=== PATIENT | male | born 1960 | race Caucasian/White ===

== ENCOUNTER 2017-10-03 20:24 | Inpatient (IN) | payer BC ==
[~2017-10-03] VITALS: Ht 200.7 cm; Wt 163.9 kg
[~2017-10-03 20:24] MED LIST: ANCEF,KEFZ2 GM/100 M IV; Glucophage PO; HUMULIN 70100 UNIT/2 SC; INDOCIN SR75 MG PO; K-Dur PO; LANTUS 3 M100 UNITS/ SC; LEVEMIR100 UNIT/2 SC; LISINOPRIL10 MG PO; LOVENOX40 MG/0.4 SC; Lopressor PO; Motrin PO; NAFCIL2 GM IV; NOVOLOG PE100 UNITS/ SC; PERCOCET 5/31 TABLET PO; PROTONIX40 MG PO; Percocet 5/325,Endoc PO; Protonix PO; ZESTRIL10 MG PO; Zestril,Prinivil PO
[2017-10-03 21:58] LABS: HEMATOCRIT 38.3 % (38.0-50.0); HEMOGLOBIN 13.3 G/DL (12.5-16.6); MCH 29.1 PG (29.0-34.0); MCHC 34.7 G/DL (30.0-36.0); MCV 83.8 FL (86-99); PLATELET COUNT 225 K/uL (156-360); RBC DIS.WIDTH-CV 12.3 % (11.8-14.6); RBC DIS.WIDTH-SD 37.6 % (39-53); RED BLOOD COUNT 4.57 M/uL (4.00-5.50); WHITE BLOOD COUNT 10.6 K/uL (4.1-10.2)
[2017-10-03 22:06] LABS: ALBUMIN 3.4 g/dL (3.2-4.8); CHLORIDE 100 mEq/L (99-109); POTASSIUM 4.3 mEq/L (3.7-5.4); SODIUM 132 mEq/L (136-147)
[2017-10-03 22:09] LABS: TOTAL PROTEIN 7.6 g/dL (6.4-8.3)
[2017-10-03 22:11] LABS: TOTAL BILIRUBIN 0.3 mg/dL (0.0-1.0)
[2017-10-03 22:12] LABS: ALKALINE PHOSPHATASE 84 IU/L (3-129); CREATININE 1.2 mg/dL (0.6-1.3); GFR ESTIMATE (CALCULATED) > 59 mL/min/ (58.99-99999)
[2017-10-03 22:14] LABS: AST (GOT) 12 IU/L (2-34); UREA NITROGEN (BUN) 25 mg/dL (9-23)
[2017-10-03 22:15] LABS: ALT (GPT) 13 IU/L (3-49); GLUCOSE 410 mg/dL (70-99)
[2017-10-03 23:07] LABS: C-REACTIVE PROTEIN 120.5 MG/L (0-10)
[2017-10-03] MEDS ORDERED: HUMALOG100 UNIT/2 SC (23:28)
[2017-10-03] MEDS ORDERED: LISINOPRIL-HCT1 EAC3 PO (23:29)
[2017-10-03] MEDS ORDERED: ATORVASTATIN CA40 MG PO (23:29)
[2017-10-03] MEDS ORDERED: AMLODIPINE BESY10 MG PO (23:29)
[2017-10-03] MEDS ORDERED: LEVEMIR FL100 UNIT/1 SC (23:30)
[2017-10-03] MEDS ORDERED: ASPERCREME76.5 GM TP (23:31)
[2017-10-03] MEDS ORDERED: ANTACID PO (23:31)
[2017-10-03] MEDS ORDERED: MOTRIN IB200 MG PO (23:31)
[2017-10-03] MEDS ORDERED: [UNRECOGNIZED DRUG - OTHER] PO (23:32)
[2017-10-04 01:00] VITALS: BP 141/73
[2017-10-04 07:05] VITALS: BP 143/76
[2017-10-04 15:00] VITALS: BP 154/81
[2017-10-05] VITALS: BP 137/61
[2017-10-05 06:30] LABS: HEMATOCRIT 40.3 % (38.0-50.0); HEMOGLOBIN 13.7 G/DL (12.5-16.6); MCV 85.2 FL (86-99); PLATELET COUNT 197 K/uL (156-360); RBC DIS.WIDTH-CV 12.5 % (11.8-14.6); RBC DIS.WIDTH-SD 38.8 % (39-53); RED BLOOD COUNT 4.73 M/uL (4.00-5.50); WHITE BLOOD COUNT 8.3 K/uL (4.1-10.2)
[2017-10-05 07:10] VITALS: BP 143/77
[2017-10-05 07:37] LABS: CHLORIDE 105 MEQ/L (99-109); CREATININE 0.8 MG/DL (0.6-1.3); GFR ESTIMATE (CALCULATED) > 59 mL/min/ (58.99-99999); POTASSIUM 4.1 MEQ/L (3.7-5.4); SODIUM 138 MEQ/L (136-147); UREA NITROGEN (BUN) 17 mg/dL (9-23)
[2017-10-05 07:44] LABS: GLUCOSE 133 mg/dL (70-99)
[2017-10-05 15:20] VITALS: BP 140/83
[2017-10-05 23:10] VITALS: BP 131/68
[2017-10-06 06:29] LABS: HEMOGLOBIN A1c (GLYCOHEMOGLOB) 11.1 % (Below 5.7)
[2017-10-06 07:00] VITALS: BP 131/74
[2017-10-06 08:35] LABS: HEMATOCRIT 40.5 % (38.0-50.0); HEMOGLOBIN 13.6 G/DL (12.5-16.6); MCH 28.6 PG (29.0-34.0); MCHC 33.6 G/DL (30.0-36.0); MCV 85.3 FL (86-99); PLATELET COUNT 208 K/uL (156-360); RBC DIS.WIDTH-CV 12.4 % (11.8-14.6); RBC DIS.WIDTH-SD 38.6 % (39-53); RED BLOOD COUNT 4.75 M/uL (4.00-5.50); WHITE BLOOD COUNT 7.4 K/uL (4.1-10.2)
[2017-10-06 08:57] LABS: ALBUMIN 2.8 G/DL (3.2-4.8); ALKALINE PHOSPHATASE 67 IU/L (3-129); ALT (GPT) 10 IU/L (3-49); AST (GOT) 11 IU/L (2-34); CHLORIDE 104 MEQ/L (99-109); CREATININE 0.8 MG/DL (0.6-1.3); GFR ESTIMATE (CALCULATED) > 59 mL/min/ (58.99-99999); GLUCOSE 123 mg/dL (70-99); SODIUM 137 MEQ/L (136-147); TOTAL BILIRUBIN 0.4 MG/DL (0.0-1.0); TOTAL PROTEIN 5.8 G/DL (6.4-8.3); UREA NITROGEN (BUN) 14 mg/dL (9-23)
[2017-10-06 08:58] LABS: CREATININE 0.8 MG/DL (0.6-1.3); GFR ESTIMATE (CALCULATED) > 59 mL/min/ (58.99-99999)
[2017-10-06 14:46] VITALS: BP 118/59
[2017-10-06 22:43] VITALS: BP 150/70
[2017-10-07 06:40] LABS: HEMATOCRIT 40.5 % (38.0-50.0); HEMOGLOBIN 13.3 G/DL (12.5-16.6); MCH 28.9 PG (29.0-34.0); MCHC 32.8 G/DL (30.0-36.0); MCV 87.9 FL (86-99); PLATELET COUNT 209 K/uL (156-360); RBC DIS.WIDTH-CV 12.7 % (11.8-14.6); RBC DIS.WIDTH-SD 40.7 % (39-53); RED BLOOD COUNT 4.61 M/uL (4.00-5.50); WHITE BLOOD COUNT 8.9 K/uL (4.1-10.2)
[2017-10-07 07:09] LABS: ALBUMIN 2.9 G/DL (3.2-4.8); ALKALINE PHOSPHATASE 76 IU/L (3-129); ALT (GPT) 12 IU/L (3-49); AST (GOT) 15 IU/L (2-34); CHLORIDE 100 MEQ/L (99-109); GFR ESTIMATE (CALCULATED) > 59 mL/min/ (58.99-99999); GLUCOSE 104 mg/dL (70-99); POTASSIUM 4.4 MEQ/L (3.7-5.4); SODIUM 138 MEQ/L (136-147); TOTAL BILIRUBIN 0.4 MG/DL (0.0-1.0); TOTAL PROTEIN 6.4 G/DL (6.4-8.3); UREA NITROGEN (BUN) 14 mg/dL (9-23)
[2017-10-07 07:14] VITALS: BP 142/69
[2017-10-07 15:15] VITALS: BP 138/71
[2017-10-07 23:56] VITALS: BP 151/67
[2017-10-08 06:13] LABS: HEMATOCRIT 41.7 % (38.0-50.0); HEMOGLOBIN 13.7 G/DL (12.5-16.6); MCHC 32.9 G/DL (30.0-36.0); MCV 85.3 FL (86-99); PLATELET COUNT 234 K/uL (156-360); RBC DIS.WIDTH-CV 12.3 % (11.8-14.6); RBC DIS.WIDTH-SD 38.4 % (39-53); RED BLOOD COUNT 4.89 M/uL (4.00-5.50)
[2017-10-08 06:40] LABS: ALBUMIN 2.9 G/DL (3.2-4.8); ALKALINE PHOSPHATASE 81 IU/L (3-129); ALT (GPT) 14 IU/L (3-49); AST (GOT) 18 IU/L (2-34); CHLORIDE 101 MEQ/L (99-109); CREATININE 0.8 MG/DL (0.6-1.3); GFR ESTIMATE (CALCULATED) > 59 mL/min/ (58.99-99999); GLUCOSE 99 mg/dL (70-99); POTASSIUM 3.9 MEQ/L (3.7-5.4); SODIUM 137 MEQ/L (136-147); TOTAL BILIRUBIN 0.4 MG/DL (0.0-1.0); TOTAL PROTEIN 6.6 G/DL (6.4-8.3); UREA NITROGEN (BUN) 13 mg/dL (9-23)
[2017-10-08 07:39] VITALS: BP 143/82
[2017-10-08] MEDS ORDERED: CEPHALEXIN500 MG PO (10:07)
== END 2017-10-08 11:38 | disposition home or self-care (01) | DRG 240 ==
LOC: EME 20:24 → 5EAST 23:45 → EDOF 23:45 → ENRESERV 23:46 → 5EAST 10-04 00:16 → EDOF 10-04 00:19 → ENRESERV 10-04 00:19 → 5EAST 10-04 00:58
PROVIDERS: Emergency Medicine; Hospitalist; Internal Medicine
DX: E11.52 Type 2 diabetes mellitus with diabetic peripheral angiopathy with gangrene (principal); I96 Gangrene, not elsewhere classified; E11.69 Type 2 diabetes mellitus with other specified complication; M86.8X7 Other osteomyelitis, ankle and foot; E11.621 Type 2 diabetes mellitus with foot ulcer; L97.529 Non-pressure chronic ulcer of other part of left foot with unspecified severity; E87.2 Acidosis; I35.0 Nonrheumatic aortic (valve) stenosis; E11.40 Type 2 diabetes mellitus with diabetic neuropathy, unspecified; I10 Essential (primary) hypertension; E78.5 Hyperlipidemia, unspecified; M10.9 Gout, unspecified
CPT/HCPCS: 73630; 73720; 80048; 80053; 80202; 82010; 82565; 82803; 82948; 83036; 83605; 85027; 86140; 87040; 88305; 99281; 99285; J1644; J1815; J1956; J2405; J2543; J2710; J3010; J3370; J7030; J7050; J7643

== ENCOUNTER → 2017-11-24 | Outpatient (CLI) | payer BC ==
[~2017-11-24] MED LIST changes: +AMLODIPINE BESY10 MG PO; +ANTACID PO; +ASPERCREME76.5 GM TP; +ATORVASTATIN CA40 MG PO; +CEPHALEXIN500 MG PO; +HUMALOG100 UNIT/2 SC; +LEVEMIR FL100 UNIT/1 SC; +LISINOPRIL-HCT1 EAC3 PO; +MOTRIN IB200 MG PO; +[UNRECOGNIZED DRUG - OTHER] PO
== END | disposition home or self-care (01) ==
LOC: NUC 10:30
DX: Z01.818 Encounter for other preprocedural examination (principal); E11.628 Type 2 diabetes mellitus with other skin complications; M86.10 Other acute osteomyelitis, unspecified site; R94.39 Abnormal result of other cardiovascular function study; Z82.49 Family history of ischemic heart disease and other diseases of the circulatory system
CPT/HCPCS: 78452; 78999; 93017; A9500; J2785